=== PATIENT | male | born 1985 | race Caucasian/White ===

== ENCOUNTER → 2017-04-22 | Outpatient (REF) ==
--- NOTE | 2017-04-22 15:15 | REP ---
Lumbar spine series: Three views. History: Degenerative disc disease. Comparison study May 17, 2012. Findings: There is straightening of the normal lumbar lordosis. Lumbar vertebral body heights are preserved. Disc spaces are maintained. Pedicles and posterior elements are intact. There is no evidence of spondylolysis or spondylolisthesis. Sacrum and SI joints are unremarkable. Psoas margins are symmetric. Impression: Straightening. Otherwise negative lumbar spine radiographs. Signed by Ricki Argueta MD 04/22/2017 03:19 P
== END ==
LOC: M SMT 14:49
PROVIDERS: ATTEND Internal Medicine
DX: M51.36 Other intervertebral disc degeneration, lumbar region (principal)